=== PATIENT | male | born 1940 | race Caucasian/White ===

== ENCOUNTER 2018-02-17 07:05 | Emergency (ER) | payer MEDICARE, OTHER, SELFPAY ==
[2018-02-17] VITALS (11 sets, daily range): BP systolic 119–143; BP diastolic 85–103; PULSE 67–88; RESP 8–16; TEMP 36.8; O2SAT 98–100; BMI 27.2
[2018-02-17 07:28] LABS: Add Manual Diff / Slide Review NO; Basophils Percent Auto 0.8 % (0-2); Hematocrit 42.4 % (41-53); Hemoglobin 14.3 g/dL (13.5-17.5); Lymphocytes Percent Auto 30.8 % (25-40); Mean Corpuscular HGB Conc 33.8 % (30-36); Mean Corpuscular Hemoglobin 32.5 PG (26-34); Mean Corpuscular Volume 96.2 fL (80-100); Monocytes Percent Auto 9.9 % (3-14); Neutrophils Absolute Auto 4000 /uL (3000-5900); Neutrophils Percent Auto 56.5 % (50-75); Platelet Count 244 X10^3/uL (150-400); Red Cell Distribution Width 13.1 % (11.6-14.8)
[2018-02-17] MEDS: SODIUM CHLORIDE 0.9% 1,000 ML 150 ML IV (07:30)
[2018-02-17 07:36] LABS: INR 1.2 (0.9-1.3); Prothrombin Time 12.6 SECONDS (10.1-12.7)
[2018-02-17 07:39] LABS: PTT Partial Thromboplastin Tim 27 SECONDS (26.4-36.2)
[2018-02-17 07:43] LABS: BUN Creatinine Ratio 17.5 (6-22); Blood Urea Nitrogen 14 mg/dL (9-20); Calcium 8.7 mg/dL (8.4-10.2); Carbon Dioxide 21 mmol/L (22-32); Chloride 102 mmol/L (98-107); Estimated Glomerular Filt Rate > 60.0 mL/min (>60); Glucose 124 mg/dL (80-110); HEMOLYSIS 20 (0-50); Potassium 4.1 mmol/L (3.4-5.1); Sodium 137 mmol/L (137-145)
--- NOTE | 2018-02-17 07:49 | DI.CT.S_ITS ---
PROCEDURE: CT HEAD/BRAIN WO CON INDICATIONS: mental status change, known tumor in brain TECHNIQUE: Noncontrast 4.5 mm thick angled axial sections acquired from the foramen magnum to the vertex, with coronal and sagittal reformats. For radiation dose reduction, the following was used: automated exposure control, adjustment of mA and/or kV according to patient size. COMPARISON: None. FINDINGS: Image quality: Excellent. CSF spaces: Basal cisterns are patent. No extra-axial fluid collections. The ventricles are symmetric in size and shape. Brain: No intracranial bleeds but there is abnormal low attenuation within the deep white matter of right frontal region extending to the frontoparietal junction and within the left frontotemporal region and extending into the superior left parietal region. There is mass effect against the anterior border of the frontal horn of the right lateral ventricle and also against the lateral ventricle on the left, moderate in overall severity.. There is cerebral volume loss for age, with resultant ventricular and sulcal prominence. There are periventricular and deep white matter chronic small vessel ischemic changes. There is intracranial internal carotid artery atherosclerosis. Skull and face: Calvarium and visualized facial bones appear intact, without suspicious lesions. Sinuses: Visualized sinuses and mastoids are clear. IMPRESSION: The findings discussed above indicate high likelihood of vasogenic edema causing the low attenuation noted, and discrete underlying mass lesions are not identifiable in that background given the noncontrast nature of this study. The clinical history indicates previously identified brain neoplasm or neoplasm bilaterally and the current study supports a bilateral involvement. Moderate mass effect is present, brain MRI without and with contrast is recommended. Finally, obtaining old comparison contrast-enhanced CT or brain MR imaging is recommended. Dictated by: Emil Galvez M.D. on 02/17/2018 at 8:09 Approved by: Emil Galvez M.D. on 02/17/2018 at 8:12
[2018-02-17 07:59] LABS: Prolactin 38.9 ng/mL (3.7-17.9)
--- NOTE | 2018-02-17 08:08 | ED_ITS ---
HPI - Neuro Symptoms/Deficit General Chief Complaint: Neuro Symptoms/Deficit Stated Complaint: Seizure Time Seen by Provider: 02/17/18 07:08 Source: patient, family and EMS Mode of arrival: EMS Limitations: no limitations History of Present Illness HPI Narrative: 77-year-old male patient presents by [facility] is EMS after having seizure-like activity with stroke-like symptoms immediately upon waking this morning, just prior to arrival. He went to get out of bed and became quite rigid and slumped to the ground. He was unresponsive but guarding his airway on EMS arrival and had some improvement prior to his arrival including some verbal communication and improved use of right upper extremity. Patient has history of primary lung CA with brain mets. He's never had seizures before. On Anticoagulants: No Related Data Home Medications Medication Instructions Recorded Confirmed Zantac 1 tab PO PRN PRN 02/17/18 02/17/18 gefitinib [Iressa] 1 tab PO DAILY 02/17/18 02/17/18 ibuprofen 1 dose PO PRN PRN 02/17/18 02/17/18 losartan 1 dose PO DIRECTED 02/17/18 02/17/18 tobramycin-dexamethasone 1 drp EYE-RIGHT QID 02/17/18 02/17/18 Previous Rx's Medication Instructions Recorded dexamethasone [Decadron] 4 mg PO Q6H #60 tab 02/17/18 levetiracetam [Keppra] 500 mg PO BID #60 tab 02/17/18 Allergies Allergy/AdvReac Type Severity Reaction Status Date / Time No Known Drug Allergies Allergy Verified 02/17/18 07:19 Review of Systems Review of Systems All systems reviewed & are unremarkable except as noted in HPI and below Constitutional Denies chills, Denies fever(s), Denies lethargy and Denies weakness Eyes Denies change in vision, Denies eye discharge, Denies irritation and Denies loss of vision ENT Ears, Nose, Mouth, and Throat: Denies change in voice, Denies neck pain and Denies sore throat Cardiovascular Denies chest pain, Denies irregular heart rhythm, Denies lightheadedness, Denies palpitations, Denies dyspnea, Denies dyspnea on exertion and Denies orthopnea Respiratory Denies cough, Denies dyspnea, Denies dyspnea on exertion and Denies wheezing Gastrointestinal Gastrointestinal: Denies abdominal pain, Denies change in bowel habits, Denies diarrhea, Denies nausea and Denies vomiting Genitourinary Denies hematuria, Denies flank pain, Denies urinary incontinence and Denies urinary urgency Musculoskeletal Denies neck pain Integumentary/Breasts Denies pruritus, Denies erythema, Denies rash and Denies wounds Neurologic Denies confusion, Denies loss of vision and Denies weakness Psychiatric Denies anxiety, Denies confusion, Denies depression, Denies homicidal ideation and Denies suicidal ideation Endocrine Denies palpitations Hematologic/Lymphatic Denies easy bruising Allergic/Immunologic Denies wheezing PFSH Medical History GERD (gastroesophageal reflux disease) (Acute) HTN (hypertension) (Acute) Lung cancer (Acute) Metastasis to brain (Acute) Social History Smoking Status: Never smoker Exam Narrative Exam Narrative: 77-year-old male in mild distress, nonverbal but easily arousable Initial Vital Signs Initial Vital Signs: Vital Signs Temperature 98.2 F 02/17/18 07:11 Pulse Rate 88 02/17/18 07:11 Respiratory Rate 16 02/17/18 07:11 Blood Pressure 143/103 H 02/17/18 07:11 Pulse Oximetry 100 02/17/18 07:11 Const General: cooperative and well developed Nutritional Appearance: well nourished Orientation: alert, awake, confused and obtunded Limitations: altered mental status HENDE Head: normocephalic and atraumatic Ears: external ears normal and TM's normal bilaterally Nose: external nose normal and No nasal discharge Face and sinus: sinuses nontender, face symmetric, no sinus tenderness and No dry mucous membranes Mouth: oral mucosae normal and moist mucous membranes Teeth and gingiva: dentition normal Throat: tonsils normal and uvula midline Eyes General: appearance normal, both eyes and all related structures Eyelids: eyelids normal Conjunctivae: conjunctivae normal Sclera: sclerae normal Pupils: PERRL EOM: EOM intact bilaterally Neck Neck: normal visual inspection, trachea midline, No lymphadenopathy, No midline deformity and No JVD Lymphatic: No lymphedema Chest Chest: normal inspection of the chest Resp Effort & Inspection: normal respiratory effort, able to speak in complete sentences, no respiratory distress and no use of accessory muscles Auscultation: clear to auscultation bilaterally, no rales, no rhonchi and no wheezes Cardio Rate: regular rate Rhythm: regular rhythm Heart Sounds: no click, no gallops, no murmurs and no rubs Pulses: normal peripheral pulses GI Inspection: non-distended Palpation: soft, no hepatosplenomegaly, No guarding, No pulsatile mass and No tender Auscultation: normal bowel sounds Back/Spine/Pelvis Back: No CVA tenderness Cervical Spine: cervical ROM normal and No pain with cervical ROM Thoracic/Lumbar Spine: thoracic and lumbar spine normal to inspection Skin General: no rashes or lesions noted, No jaundice and No petechiae Neuro General: alert Extrem General: full ROM, no clubbing, cyanosis or edema, no pedal edema and no calf tenderness Psych Appearance: well kempt Mental Status: mental status grossly normal Thought Content: suicidality Course Orders Ordered: ED Orders 02/17/18 07:08 Urine Drug Screen, Rapid Stat EKG-12 Lead Stat 02/17/18 07:18 Basic Metabolic Panel Stat Complete Blood Count AUTO DIFF Stat Partial Thromboplastin Time Stat Prolactin Stat Prothrombin Time INR Stat 02/17/18 07:49 CT head/brain wo con Stat 02/17/18 09:05 MR head/brain wo/w con Stat Discontinued Medications Dexamethasone (Decadron) 10 mg IV NOW ONE Stop: 02/17/18 08:39 Last Admin: 02/17/18 09:03 Dose: 10 mg Sodium Chloride (Normal Saline 0.9%) 1,000 mls @ 150 mls/hr IV CONT COLIN Last Infusion: 02/17/18 13:18 Dose: 0 mls/hr Admin: 02/17/18 07:30 Dose: 150 mls/hr Levetiracetam 500 mg/ Sodium (Chloride) 105 mls @ 420 mls/hr IV NOW ONE Stop: 02/17/18 08:39 Last Infusion: 02/17/18 09:33 Dose: 0 mls/hr Admin: 02/17/18 09:03 Dose: 420 mls/hr Reevaluation(s) Reevaluation #1: Patient is now at baseline per was at the bedside. He is verbal and speaks clearly. He is moving all extremities purposely. NIH stroke scale 0 Time: 08:27 Consultations Consultation #1: call to [facility] Oncology. They agree with plan to administer Decadron and Keppra. Recommend call to the Radiation Oncology Clinic for further plans Time: 08:28 Consultation #2: Radiation oncology recommends a brain MRI with and without contrast to make further evaluations regarding how to proceed. This MRI has been ordered and is likely to be completed at about 11 15 at which point I will call with results call back with results and patient's own medical oncologist was available and recommends Decadron 4mg PO q6x2 days and then BID along with Keppra. Vital Signs - 8 hr 02/17/18 08:00 02/17/18 08:30 02/17/18 09:00 Pulse Rate 83 79 78 Respiratory Rate 13 16 11 L Blood Pressure [Left Arm] 134/91 H 131/85 H 133/89 H Blood Pressure [Right Arm] Pulse Oximetry 100 100 100 02/17/18 09:30 02/17/18 10:00 02/17/18 10:30 Pulse Rate 73 75 74 Respiratory Rate 12 13 Blood Pressure [Left Arm] 139/91 H 128/91 H 136/89 H Blood Pressure [Right Arm] Pulse Oximetry 99 99 99 02/17/18 11:04 02/17/18 12:48 02/17/18 14:02 Pulse Rate 76 71 67 Respiratory Rate 8 L 15 15 Blood Pressure [Left Arm] 139/90 H 119/97 H Blood Pressure [Right Arm] 120/92 H Pulse Oximetry 98 100 98 MDM - Neuro Symptoms/Deficit Differential Diagnosis Likely convulsions, delirium, subarachnoid hemorrhage, cerebrovascular accident , multiple sclerosis and transient cerebral ischemia Medical Records Attestation: I reviewed the patient's medical records. Lab Data Attestation: I reviewed the patient's lab results. Result diagrams: 02/17/18 07:18 02/17/18 07:18 Lab Results 02/17/18 02/17/18 02/17/18 Range/Units 07:18 07:18 07:18 WBC 7.0 (4.5-11.0) X10^3/uL RBC 4.40 L (4.5-5.9) X10^6/uL Hgb 14.3 (13.5-17.5) g/dL Hct 42.4 (41-53) % MCV 96.2 (80-100) fL MCH 32.5 (26-34) PG MCHC 33.8 (30-36) % RDW 13.1 (11.6-14.8) % Plt Count 244 (150-400) X10^3/uL Neut % (Auto) 56.5 (50-75) % Lymph % (Auto) 30.8 (25-40) % Bullock % (Auto) 9.9 (3-14) % Eos % (Auto) 2.0 (2-4) % Baso % (Auto) 0.8 (0-2) % Neut # (Auto) 4000 (8725-4440) /uL PT 12.6 (10.1-12.7) SECONDS INR 1.2 (0.9-1.3) APTT 27 (26.4-36.2) SECONDS Sodium 137 (137-145) mmol/L Potassium 4.1 (3.4-5.1) mmol/L Chloride 102 (98-107) mmol/L Carbon Dioxide 21 L (22-32) mmol/L BUN 14 (9-20) mg/dL Creatinine 0.80 (0.66-1.25) mg/dL Estimated GFR > 60.0 (>60) mL/min BUN/Creatinine Ratio 17.5 (6-22) Glucose 124 H (80-110) mg/dL Calcium 8.7 (8.4-10.2) mg/dL Prolactin 38.9 H (3.7-17.9) ng/mL 08/16/18 Range/Units 07:18 WBC (4.5-11.0) X10^3/uL RBC (4.5-5.9) X10^6/uL Hgb (13.5-17.5) g/dL Hct (41-53) % MCV (80-100) fL MCH (26-34) PG MCHC (30-36) % RDW (11.6-14.8) % Plt Count (150-400) X10^3/uL Neut % (Auto) (50-75) % Lymph % (Auto) (25-40) % Bullock % (Auto) (3-14) % Eos % (Auto) (2-4) % Baso % (Auto) (0-2) % Neut # (Auto) (3726-0031) /uL PT (10.1-12.7) SECONDS INR (0.9-1.3) APTT (26.4-36.2) SECONDS Sodium (137-145) mmol/L Potassium (3.4-5.1) mmol/L Chloride (98-107) mmol/L Carbon Dioxide (22-32) mmol/L BUN (9-20) mg/dL Creatinine (0.66-1.25) mg/dL Estimated GFR (>60) mL/min BUN/Creatinine Ratio (6-22) Glucose (80-110) mg/dL Calcium (8.4-10.2) mg/dL Prolactin Cancelled (3.7-17.9) ng/mL Imaging Data MRI - head: Radiologist's impression: PROCEDURE: MR HEAD/BRAIN WO/W CON INDICATIONS: known mets, seizures today, request per radiation oncology TECHNIQUE: Noncontrast axial T1 spin echo, axial T2 fast spin echo, sagittal and axial FLAIR, coronal T2 fast spin echo, axial gradient echo, axial diffusion and ADC through the brain. After the administration of contrast, axial and coronal 3D VIBE or T1 spin echo with fat saturation through the brain. COMPARISON: MRI of brain without and with contrast dated 01/31/18. FINDINGS: Image quality: Excellent. CSF Spaces: Basal cisterns are patent. No extra-axial fluid collections. There is no hydronephrosis. Extensive vasogenic edema from bilateral frontal region with mild mass effect on bilateral anterior horns are seen, not significantly changed from previous study. Brain: Compared to previous study, again noted are 3 heterogeneously enhancing lesions seen in bilateral frontal lobe and left frontoparietal junction. All 3 lesions are unchanged in size compared to most recent study and show extensive surrounding vasogenic edema, unchanged or slightly worsened since previous study. No new area of abnormal contrast enhancement is seen to suggest additional metastatic disease. No midline shift. No intracranial bleeds. The brainstem appears normal. Diffusion-weighted images demonstrate no acute ischemic insults. No chronic ischemic insults. Normal intravascular flow voids are present. Skull and face: Calvarial marrow is normal in signal. Orbits appear normal. Sinuses: Sinuses and mastoids appear clear. IMPRESSION: 1. 3 metastatic lesions involving bilateral frontal lobes and left frontoparietal junction, unchanged in size and appearance from 01/31/18 study. Extensive vasogenic edema surrounding above-mentioned metastatic lesions with mild mass effect on the bilateral anterior horns. This is unchanged or slightly progressed since previous study. No new metastatic lesion is seen. 2. No evidence of acute infarction. No MR evidence of intracranial hemorrhage. No midline shift. Dictated by: Chandan Metzger M.D. on 02/17/2018 at 11:59 Approved by: Chandan Metzger M.D. on 02/17/2018 at 12:14 Critical Care Time Critical Care Time: Yes Total Critical Care Time: 30 Attestation: The high probability of a clinically significant, sudden or life threatening deterioration of the [cardiovascular/neurologic] system(s) required my full and direct attention, intervention and personal management. The aggregate critical care time was [30] minutes. 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 ] *What to do: *Take medications as directed *Follow up with your oncologist, call for an appointment. Let them know you were seen in the Emergency Department and that we ask that you be seen in follow up *Return to ER if you should have any new, worsening or concerning symptoms Prescriptions: New levetiracetam [Keppra] 500 mg tablet 500 mg PO BID Qty: 60 RF: 0 dexamethasone [Decadron] 4 mg tablet 4 mg PO Q6H Qty: 60 RF: 0 No Action tobramycin-dexamethasone 0.3-0.1 % drops,suspension 1 drp EYE-RIGHT QID RF: 0 gefitinib [Iressa] 250 mg tablet 1 tab PO DAILY RF: 0 Zantac 1 tab PO PRN PRN (Reason: Indigestion) RF: 0 losartan 1 dose PO DIRECTED RF: 0 ibuprofen 200 mg Tablet 1 dose PO PRN PRN (Reason: residual pain from shingles) RF: 0 Referrals: Jovany Marie MD [Primary Care Provider] - Bo Montgomery MD [Physician] -
[2018-02-17] MEDS: levETIRAcetam 500 MG in SODIUM CHLORIDE 0.9% 100 ML 420 ML IV (09:03)
[2018-02-17] MEDS: DEXAMETHASONE 10 MG/ML VIAL IV (09:03)
--- NOTE | 2018-02-17 09:05 | DI.MRI.S_ITS ---
PROCEDURE: MR HEAD/BRAIN WO/W CON INDICATIONS: known mets, seizures today, request per radiation oncology TECHNIQUE: Noncontrast axial T1 spin echo, axial T2 fast spin echo, sagittal and axial FLAIR, coronal T2 fast spin echo, axial gradient echo, axial diffusion and ADC through the brain. After the administration of contrast, axial and coronal 3D VIBE or T1 spin echo with fat saturation through the brain. COMPARISON: MRI of brain without and with contrast dated 01/31/18. FINDINGS: Image quality: Excellent. CSF Spaces: Basal cisterns are patent. No extra-axial fluid collections. There is no hydronephrosis. Extensive vasogenic edema from bilateral frontal region with mild mass effect on bilateral anterior horns are seen, not significantly changed from previous study. Brain: Compared to previous study, again noted are 3 heterogeneously enhancing lesions seen in bilateral frontal lobe and left frontoparietal junction. All 3 lesions are unchanged in size compared to most recent study and show extensive surrounding vasogenic edema, unchanged or slightly worsened since previous study. No new area of abnormal contrast enhancement is seen to suggest additional metastatic disease. No midline shift. No intracranial bleeds. The brainstem appears normal. Diffusion-weighted images demonstrate no acute ischemic insults. No chronic ischemic insults. Normal intravascular flow voids are present. Skull and face: Calvarial marrow is normal in signal. Orbits appear normal. Sinuses: Sinuses and mastoids appear clear. IMPRESSION: 1. 3 metastatic lesions involving bilateral frontal lobes and left frontoparietal junction, unchanged in size and appearance from 01/31/18 study. Extensive vasogenic edema surrounding above-mentioned metastatic lesions with mild mass effect on the bilateral anterior horns. This is unchanged or slightly progressed since previous study. No new metastatic lesion is seen. 2. No evidence of acute infarction. No MR evidence of intracranial hemorrhage. No midline shift. Dictated by: Chandan Metzger M.D. on 02/17/2018 at 11:59 Approved by: Chandan Metzger M.D. on 02/17/2018 at 12:14
== END 2018-02-17 14:07 | disposition home or self-care (01) ==
PROVIDERS: Emergency Provider Emergency Medicine; PCP Family Medicine
DX: C79.31 Secondary malignant neoplasm of brain (principal); R56.9 Unspecified convulsions
CPT/HCPCS: 36591; 70450; 70553; 80048; 82962; 84146; 85025; 85610; 85730; 93005; 93010; 96361; 96374; 96375; 99285; J1100; J1953

== ENCOUNTER 2018-03-01 04:15 | Emergency (ER) | payer MEDICARE, OTHER, SELFPAY ==
[2018-03-01 04:10] VITALS: BP 145/114; PULSE 63
[2018-03-01 04:25] VITALS: PULSE 0; RESP 0; O2SAT 0
--- NOTE | 2018-03-01 04:42 | ED.CPR ---
HPI - CPR General Chief Complaint: Cardiac Arrest/CPR Stated Complaint: CPR Time Seen by Provider: 03/01/18 04:34 Source: EMS Mode of arrival: EMS History of Present Illness HPI narrative: 77-year-old male with known history of metastatic cancer presents to the emergency department by EMS with CPR in progress. found him with snoring respirations and a lack of pulse and initiated CPR, called 911 in on arrival EMS continued the process. When all was said and done the patient received multiple rounds of ALS medications including epinephrine x4 and amiodarone 300 mg. He had developed ventricular fibrillation and was successfully defibrillated and developed return of spontaneous circulation. The patient was being transported to [facility] secondary to Dylan when he lost pulses and again was diverted to our department. Patient had regained a very thready pulse in the ambulance [place] and was taken directly into room 1 where our code Blue Team was waiting. had told the medics on scene that there was a legal form with end of life wishes, but that he would not want prolonged resuscitation if at all. MD complaint: found unresponsive Onset (ago): minute(s) Timing confirmed by: spouse Place: home Bystander CPR performed: Yes AED applied by bystander/dental patient coordinator: No Initial findings in the field: unresponsive ROSC in the field: Yes Associated injuries: No Known history of: cancer Treatments prior to arrival: intubation, chest compressions, defibrillated shocks # (5), epinephrine mgs # (4) and amiodarone (300mg x1) Related Data Home Medications Medication Instructions Recorded Confirmed Zantac 1 tab PO PRN PRN 02/17/18 02/17/18 gefitinib [Iressa] 1 tab PO DAILY 02/17/18 02/17/18 ibuprofen 1 dose PO PRN PRN 02/17/18 02/17/18 losartan 1 dose PO DIRECTED 02/17/18 02/17/18 tobramycin-dexamethasone 1 drp EYE-RIGHT QID 02/17/18 02/17/18 Previous Rx's Medication Instructions Recorded dexamethasone [Decadron] 4 mg PO Q6H #60 tab 02/17/18 levetiracetam [Keppra] 500 mg PO BID #60 tab 02/17/18 Allergies Allergy/AdvReac Type Severity Reaction Status Date / Time No Known Drug Allergies Allergy Verified 02/17/18 07:19 Review of Systems Review of Systems critical patient, intubated Exam Narrative Exam Narrative: 77M, critical, intubated, cyanotic, fixed pupils, pale fingers/toes Initial Vital Signs Initial Vital Signs: Vital Signs Pulse Rate 63 03/01/18 04:10 Blood Pressure 145/114 H 03/01/18 04:10 Const General: acute distress and patient mechanically ventilated [facility] Head: other (small abrasion over R eyebrow) Eyes Other: pupils fixed and dilated Chest Chest: normal inspection of the chest Other: Resp Other: agonal, all breaths by BVM/respiratory therapist. No abnormal sounds Cardio Other: initially a very thready femoral pulse which quickly slowed to agonal GI Inspection: normal to inspection Skin Other: mottled, cool to the touch Neuro Pupils: Fixed/non-reactive: bilateral Other: no purposeful movement PFSH Medical History GERD (gastroesophageal reflux disease) (Acute) HTN (hypertension) (Acute) Lung cancer (Acute) Metastasis to brain (Acute) Social History Smoking Status: Never smoker Course Reevaluation(s) Reevaluation #1: patient's initial pulse quickly faded and within a few minutes pulse was lost. was clear that he would not want a prolonged resuscitation. We had undergone multiple rounds of ALS medications and it became clear that his rhythm/pulses were driven by medications. From time of arrival he had mottling with fixed/dilated pupils. Per family wishes our efforts did not continue beyond this final loss of pulses. TOD 0425, confirmed by asystole on monitor, apneic, fixed pupils, lack of cardiac activity on monitor Vital Signs - 8 hr 03/01/18 04:10 03/01/18 04:25 Pulse Rate 63 0 L Respiratory Rate 0 L Blood Pressure 145/114 H Pulse Oximetry 0 L Discharge Plan Departure Patient Disposition: Clinical Impression: Cardiac arrest
--- NOTE | 2018-03-01 04:57 | ED_ITS ---
HPI - CPR General Chief Complaint: Cardiac Arrest/CPR Stated Complaint: CPR Time Seen by Provider: 03/01/18 04:34 Source: EMS Mode of arrival: EMS History of Present Illness HPI narrative: 77-year-old male with known history of metastatic cancer presents to the emergency department by EMS with CPR in progress. found him with snoring respirations and a lack of pulse and initiated CPR, called 911 in on arrival EMS continued the process. When all was said and done the patient received multiple rounds of ALS medications including epinephrine x4 and amiodarone 300 mg. He had developed ventricular fibrillation and was successfully defibrillated and developed return of spontaneous circulation. The patient was being transported to [facility] secondary to [place] when he lost pulses and again was diverted to our department. Patient had regained a very thready pulse in the ambulance [place] and was taken directly into room 1 where our code Blue Team was waiting. had told the medics on scene that there was a legal form with end of life wishes, but that he would not want prolonged resuscitation if at all. 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: No Initial findings in the field: unresponsive ROSC in the field: Yes Associated injuries: No Known history of: cancer Treatments prior to arrival: intubation, chest compressions, defibrillated shocks # (5), epinephrine mgs # (4) and amiodarone (300mg x1) Related Data Home Medications Medication Instructions Recorded Confirmed Zantac 1 tab PO PRN PRN 02/17/18 02/17/18 gefitinib [Iressa] 1 tab PO DAILY 02/17/18 02/17/18 ibuprofen 1 dose PO PRN PRN 02/17/18 02/17/18 losartan 1 dose PO DIRECTED 02/17/18 02/17/18 tobramycin-dexamethasone 1 drp EYE-RIGHT QID 02/17/18 02/17/18 Previous Rx's Medication Instructions Recorded dexamethasone [Decadron] 4 mg PO Q6H #60 tab 02/17/18 levetiracetam [Keppra] 500 mg PO BID #60 tab 02/17/18 Allergies Allergy/AdvReac Type Severity Reaction Status Date / Time No Known Drug Allergies Allergy Verified 02/17/18 07:19 Review of Systems Review of Systems critical patient, intubated Exam Narrative Exam Narrative: 77M, critical, intubated, cyanotic, fixed pupils, pale fingers/ toes Initial Vital Signs Initial Vital Signs: Vital Signs Pulse Rate 63 03/01/18 04:10 Blood Pressure 145/114 H 03/01/18 04:10 Const General: acute distress and patient mechanically ventilated [facility] Head: other (small abrasion over R eyebrow) Eyes Other: pupils fixed and dilated Chest Chest: normal inspection of the chest Other: Resp Other: agonal, all breaths by BVM/respiratory therapist. No abnormal sounds Cardio Other: initially a very thready femoral pulse which quickly slowed to agonal GI Inspection: normal to inspection Skin Other: mottled, cool to the touch Neuro Pupils: Fixed/non-reactive: bilateral Other: no purposeful movement PFSH Medical History GERD (gastroesophageal reflux disease) (Acute) HTN (hypertension) (Acute) Lung cancer (Acute) Metastasis to brain (Acute) Social History Smoking Status: Never smoker Course Reevaluation(s) Reevaluation #1: patient's initial pulse quickly faded and within a few minutes pulse was lost. was clear that he would not want a prolonged resuscitation. We had undergone multiple rounds of ALS medications and it became clear that his rhythm/pulses were driven by medications. From time of arrival he had mottling with fixed/dilated pupils. Per family wishes our efforts did not continue beyond this final loss of pulses. TOD 0425, confirmed by asystole on monitor, apneic, fixed pupils, lack of cardiac activity on monitor Vital Signs - 8 hr 03/01/18 04:10 03/01/18 04:25 Pulse Rate 63 0 L Respiratory Rate 0 L Blood Pressure 145/114 H Pulse Oximetry 0 L Discharge Plan Departure Patient Disposition: Clinical Impression: Cardiac arrest
== END 2018-03-01 06:57 | disposition expired ==
PROVIDERS: Emergency Provider Emergency Medicine; PCP Family Medicine
DX: I46.9 Cardiac arrest, cause unspecified (principal)
CPT/HCPCS: 92950; 99282; 99285